=== PATIENT | male | born 1980 | race Hispanic/Latino ===

== ENCOUNTER → 2021-10-26 | Outpatient (CLI) | payer SELFPAY ==
--- NOTE | 2021-10-26 17:11 | MRI_ITS ---
STUDY: MRI LUMBAR SPINE WITHOUT CONTRAST REASON FOR EXAM: Male, 40 years old. RADICULOPATHY, RT LEG PAIN TECHNIQUE: Standardized fat and water weighted pulse sequences were obtained in the sagittal and axial planes. COMPARISON: None FINDINGS: T12-L1: Normal endplates. Normal disc height, hydration and morphology. Normal bilateral facet joints. Normal central canal and bilateral lateral recesses. Normal bilateral intervertebral neural foramina. Normal lumbar lordosis. There is no substantial scoliosis. Normal conus medullaris that terminates at the L1-2: Normal endplates. Normal disc height, hydration and morphology. Normal bilateral facet joints. Normal central canal and bilateral lateral recesses. Normal bilateral intervertebral neural foramina. L2-3: Normal endplates. Normal disc height, hydration and morphology. Normal bilateral facet joints. Normal central canal and bilateral lateral recesses. Normal bilateral intervertebral neural foramina. L3-4: Normal endplates. Normal disc height, hydration and morphology. Normal bilateral facet joints. Normal central canal and bilateral lateral recesses. Normal bilateral intervertebral neural foramina. L4-5 there is mild degeneration of the disc material.. Normal disc height, hydration and morphology. Normal bilateral facet joints. Normal central canal and bilateral lateral recesses. Normal bilateral intervertebral neural foramina. L5-S1 there is grade 2 spondylolisthesis at L5-S1. Normal visualized sacral ala. Normal visualized paraspinous soft tissue structures. MRI/Spine Lumbar (Routine) IMPRESSION: There is grade 2 spondylolisthesis at L5-S1 There is mild degeneration of the disc at L4-5. Electronically Signed: Chaz Valdez MD at 0:15 EDT ,
== END | disposition home or self-care (01) ==
PROVIDERS: Visit Provider Anesthesiology Pain Medicine
DX: M54.16 Radiculopathy, lumbar region (principal)
CPT/HCPCS: 72148

== ENCOUNTER → 2021-11-09 | Outpatient (CLI) | payer SELFPAY ==
--- NOTE | 2021-11-09 16:20 | RAD_ITS ---
STUDY: X-RAY - LUMBAR SPINE REASON FOR EXAM: Male, 40 years old. SPONDYLI STH ESIS GRADE A Technologist Notes pt states chronic lower back pain x 11 years, pain radiates down right leg TECHNIQUE: XR Spine Lumbar Min 4 Views COMPARISON: MRI 10/26/2021 FINDINGS: Normal lumbar lordosis. There is no substantial scoliosis. There are bilateral pars articularis defects at L5-S1. There is a Grade 1 anterolisthesis of L5 on S1. The distance measures 15 mm. Normal vertebral bodies and endplates. Normal disc space heights. The soft tissue structures are unremarkable. RAD/L/S Spine Min 4 Views IMPRESSION: There are no acute findings. There are bilateral pars articularis defects at L5-S1. There is a Grade 1 anterolisthesis of L5 on S1. Electronically Signed: Hemant Dickens MD at 20:10 EDT ,
== END | disposition home or self-care (01) ==
PROVIDERS: Visit Provider Anesthesiology Pain Medicine
DX: M43.10 Spondylolisthesis, site unspecified (principal)
CPT/HCPCS: 72110